=== PATIENT | female | born 1930 | race Caucasian/White ===

== ENCOUNTER 2017-07-08 13:43 | Emergency (ER) | payer MEDICARE, BC ==
[2017-07-08] MEDS ORDERED: Sodium Chloride 0.9% 10 ML Syringe FLUSH PRN (14:14)
[2017-07-08] MEDS ORDERED: Aspirin 81 MG Tab.Chew PO ONE (14:14)
--- NOTE | 2017-07-08 14:21 | EDM.PDOC ---
ED HPI GENERAL MEDICAL PROBLEM - General Chief Complaint: Chest Pain Stated Complaint: CHEST PAIN Time Seen by Provider: 07/08/17 14:04 Source of Information: Reports: Patient History Limitations: Reports: No Limitations - History of Present Illness INITIAL COMMENTS - FREE TEXT/NARRATIVE: Patient is 86-year-old female with a history coronary disease, stent placement to the right coronary artery 2, atrial fibrillation, and pacemaker dual- chamber device. Patient states last night at approximately 3:00 in the morning while rolling over in bed she developed a sharp sensation to just under her left breast that only lasted for a short period of time. She had one episode of this. Pain was localized with no radiation. She become mildly nauseated with no emesis. She had faint dizziness as well with standing. She had a fluttering sensation in her chest when this occurred. She has a history of atrial fibrillation and has a pacemaker implanted due to this. She's mildly weak today. She feels like a limp noodle. Currently has no chest pain. She mildly short of breath. She denies any pain radiating to her back, neck, or arms. She has no abdominal pain or dysuria. Denies any recent changes in medications. She has taken all her medications as prescribed. She offers no additional complaints. Patient is on digoxin, atenolol, atorvastatin, Eliquis, aspirin, Terrie, and acid reflux medication. - Related Data Allergies Allergy/AdvReac Type Severity Reaction Status Date / Time niacin Allergy Lightheaded Verified 10/17/15 01:41 ness Home Meds: Home Meds Aspirin [Alexandra Chewable Aspirin] 81 mg PO DAILY 07/03/14 [History] Brimonidine Tartrate 1 drop EYELF BID 07/03/14 [History] Fexofenadine [Terrie] 180 mg PO DAILY PRN 07/03/14 [History] Blythe-3/DHA/EPA/DPA/Fish Oil [Blythe-3 2100 Softgel] 1 cap PO DAILY 07/03/14 [ History] Omeprazole [Prilosec] 20 mg PO DAILY 07/03/14 [History] Travoprost [Travatan Z 0.004% Ophth Soln] 1 drop EYEBOTH BEDTIME 07/03/14 [ History] atorvaSTATin Calcium [Atorvastatin Calcium] 10 mg PO DAILY 07/03/14 [History] Apixaban [Eliquis] 2.5 mg PO BID 10/17/15 [History] Digoxin 0.125 mg PO DAILY #14 tab 10/17/15 [Rx] Atenolol 50 mg PO BID 07/08/17 [History] Cyanocobalamin (Vitamin B-12) [Vitamin B-12] 1,000 mcg PO DAILY 07/08/17 [ History] Digoxin 125 mcg PO DAILY 07/08/17 [History] Past Medical History - Past Surgical History Other Cardiovascular Surgeries/Procedures: pacemaker Social & Family History - Tobacco Use Smoking Status *Q: Never Smoker Used Tobacco, but Quit: No Second Hand Smoke Exposure: No - Alcohol Use Days Per Week of Alcohol Use: 5 Number of Drinks Per Day: 1 Total Drinks Per Week: 5 - Recreational Drug Use Recreational Drug Use: No Drug Use in Last 12 Months: No ED ROS GENERAL - Review of Systems Review Of Systems: ROS reveals no pertinent complaints other than HPI. ED EXAM, GENERAL - Physical Exam Exam: See Below Exam Limited By: No Limitations General Appearance: Alert, WD/WN, No Apparent Distress Ears: Hearing Grossly Normal Nose: Normal Inspection Throat/Mouth: Normal Voice, No Airway Compromise Neck: Normal Inspection, Supple Respiratory/Chest: No Respiratory Distress, Lungs Clear, Normal Breath Sounds, No Accessory Muscle Use, Chest Non-Tender Cardiovascular: Normal Peripheral Pulses, Regular Rate, Rhythm, No Murmur Peripheral Pulses: 2+: Radial (L), Radial (R) GI/Abdominal: Normal Bowel Sounds, Soft, Non-Tender, No Organomegaly, No Distention Back Exam: Normal Inspection Extremities: Normal Inspection, Normal Range of Motion, Non-Tender, No Pedal Edema, Normal Capillary Refill Neurological: Alert, Oriented, CN II-XII Intact, Normal Cognition, No Motor/ Sensory Deficits Psychiatric: Normal Affect, Normal Mood Skin Exam: Warm, Dry, Intact, Normal Color Course - Vital Signs Last Recorded V/S: Last Vital Signs Temp 97.1 F 07/08/17 13:59 Pulse 61 07/08/17 16:34 Resp 16 07/08/17 16:34 BP 137/78 07/08/17 13:59 Pulse Ox 98 07/08/17 16:34 - Orders/Labs/Meds Orders: Active Orders 24 hr Category Date Time Status EKG 12 Lead [EKG Documentation Completion] [RC] STAT Care 07/08/17 13:55 Active Peripheral IV Care [RC] . DIRECTED Care 07/08/17 14:14 Active Chest 1V Frontal [CR] Stat Exams 07/08/17 14:14 Taken Peripheral IV Insertion Adult [OM.PC] Stat Oth 07/08/17 14:14 Ordered Labs: Laboratory Tests 07/08/17 07/08/17 07/08/17 Range/Units 14:00 14:00 14:00 WBC 4.11 (3.98-10.04) K/mm3 RBC 3.90 L (3.98-5.22) M/mm3 Hgb 13.3 (11.2-15.7) gm/L Hct 40.0 (34.1-44.9) % MCV 102.6 H (79.4-94.8) fl MCH 34.1 H (25.6-32.2) pg MCHC 33.3 (32.2-35.5) g/dl RDW Std Deviation 47.5 H (36.4-46.3) fL Plt Count 190 (182-369) K/mm3 MPV 11.2 (9.4-12.3) fl Neut % (Auto) 46.7 (34.0-71.1) % Lymph % (Auto) 39.9 (19.3-51.7) % [place] % (Auto) 10.5 (4.7-12.5) % Eos % (Auto) 2.2 (0.7-5.8) Baso % (Auto) 0.5 (0.1-1.2) % Neut # (Auto) 1.92 (1.56-6.13) K/mm3 Lymph # (Auto) 1.64 (1.18-3.74) K/mm3 [place] # (Auto) 0.43 H (0.24-0.36) K/mm3 Eos # (Auto) 0.09 (0.04-0.36) K/mm3 Baso # (Auto) 0.02 (0.01-0.08) K/mm3 Sodium 140 (136-145) mEq/L Potassium 3.8 (3.5-5.1) mEq/L Chloride 105 (98-107) mEq/L Carbon Dioxide 27 (21-32) mEq/L Anion Gap 11.8 (5-15) BUN 10 (7-18) mg/dL Creatinine 1.0 (0.55-1.02) mg/dL Est Cr Clr Drug Dosing 31.35 mL/min Estimated GFR (MDRD) 52 (>60) mL/min BUN/Creatinine Ratio 10.0 L (14-18) Glucose 142 H (83-115) mg/dL Calcium 9.2 (8.5-10.1) mg/dL Magnesium 1.8 (1.8-2.4) mg/dl Total Bilirubin 1.1 H (0.2-1.0) mg/dL AST 30 (15-37) U/L ALT 47 (14-59) U/L Alkaline Phosphatase 67 (46-116) U/L Troponin I < 0.017 (0.00-0.056) ng/mL C-Reactive Protein < 0.2 (<1.0) mg/dL Total Protein 7.2 (6.4-8.2) g/dl Albumin 3.9 (3.4-5.0) g/dl Globulin 3.3 gm/dL Albumin/Globulin Ratio 1.2 (1-2) Digoxin 0.7 L (0.9-2.0) ng/mL Meds: Medications Discontinued Medications Generic Name Dose Route Start Last Admin Trade Name Freq PRN Reason Stop Dose Admin Aspirin 324 mg 07/08/17 14:14 07/08/17 15:02 Aspirin PO 07/08/17 14:15 324 mg ONETIME ONE Administration Sodium Chloride 10 ml 07/08/17 14:14 07/08/17 15:02 Saline Flush FLUSH 10 ml ASDIRECTED PRN Administration Keep Vein Open - Re-Assessments/Exams Free Text/Narrative Re-Assessment/Exam: IV established. Aspirin 324 mg by mouth ordered. Initial labs and studies include CBC, chem 14, CRP, dig level, troponin, mg, chest x-ray one view, and EKG. EKG reveals sinus rhythm with no acute ST changes noted. Pacer spikes present in leads V1 and V2, suggesting continues atrial pacing although not seen elsewhere on the ECG. Chest x-ray reveals dual-chamber pacemaker device. No acute abnormalities noted. Final interpretation is pending. Reviewed with Dr. Poon. Patient has a [employer]onic dual-chamber pacemaker. Will have the device interrogated. Patient reported fluttering sensation to her chest last night with onset of pain. 07/08/17 15:29 Labs reviewed: White blood cell count 4.1, hemoglobin 13.3, platelet count 190, sodium 140, potassium 3.8, creatinine 1.0, glucose 142, liver enzymes within normal limits, troponin less than 0.017, CRP less than 0.2. Digoxin level is low at 0.7. Unknown patient's therapeutic range for Digoxin. Will contact PCP for details. Troponin level should've been elevated if this was related to a coronary event with onset of symptoms at 3:00 this morning. [facility] [employer] transmission note technical findings: No device or lead performance issues observed. Current EGM: Atrial pacing, ventricular sensing. Interrogation shows: Atrial tach/AF last night at 0320 a.m 07/08/2017 lasting 27 minutes and 20 seconds. Battery is good. No auto-capture thresholds for this device. Available daily lead measurements within the expected range. Device appears functioning appropriately. 07/08/17 16:11 Digoxin level obtained July 22, 2017 revealed levels of 0.8. Patient's vital signs are stable. Patient's symptoms are minimal. She is ready be discharged home. Son is calling patient's PCP's clinic to schedule appointment to be seen on Thursday. We'll discharge patient home with instructions as documented. Departure - Departure Time of Disposition: 16:12 Disposition: Home, Self-Care 01 Condition: Good Clinical Impression: Atypical chest pain Atrial fibrillation Qualifiers: Atrial fibrillation type: paroxysmal Qualified Code(s): I48.0 - Paroxysmal atrial fibrillation Instructions: Nonspecific Chest Pain, [id number] Referrals: Dianna Kennedy MD [Primary Care Provider] - Forms: ED Department Discharge Additional Instructions: Continue taking all your home medications as prescribed. Follow-up with your PCP this Thursday for reevaluation. Return to the ED as needed for any new or worsening symptoms. - My Orders Last 24 Hours: My Active Orders 07/08/17 13:55 EKG 12 Lead [EKG Documentation Completion] [RC] STAT 07/08/17 14:14 Peripheral IV Care [RC] . DIRECTED Chest 1V Frontal [CR] Stat Peripheral IV Insertion Adult [OM.PC] Stat - Assessment/Plan Last 24 Hours: My Active Orders 07/08/17 13:55 EKG 12 Lead [EKG Documentation Completion] [RC] STAT 07/08/17 14:14 Peripheral IV Care [RC] . DIRECTED Chest 1V Frontal [CR] Stat Peripheral IV Insertion Adult [OM.PC] Stat
[2017-07-08 14:27] VITALS: BP 137/78
--- NOTE | 2017-07-10 07:26 | CR ---
Chest: Frontal view of the chest was obtained. Comparison: Previous chest x-ray of 10/17/15. Heart is slightly enlarged. Tortuous thoracic aorta is seen. Pacemaker is noted. Lungs are clear but hyperinflated. Bony structures are osteopenic. Impression: 1. Incidental findings as noted above. Nothing acute is identified on frontal chest x-ray. Diagnostic code #1
== END 2017-07-08 16:25 | disposition home or self-care (01) ==
LOC: JD.ED 13:43
DX: I48.0 Paroxysmal atrial fibrillation (principal); R07.89 Other chest pain; Z95.0 Presence of cardiac pacemaker; Z79.82 Long term (current) use of aspirin; Z79.899 Other long term (current) drug therapy; Z88.8 Allergy status to other drugs, medicaments and biological substances
CPT/HCPCS: 36415; 71010; 80053; 80162; 83735; 84484; 85025; 86140; 93005; 99285; A9270; J7050; 99284

== ENCOUNTER 2018-02-19 04:51 | Emergency (ER) | payer MEDICARE, BC ==
[2018-02-19] MEDS ORDERED: Metoprolol Tartrate 50 MG Tab PO ONE (05:21)
[2018-02-19 05:27] VITALS: BP 124/93
--- NOTE | 2018-02-19 05:28 | EDM.PDOC ---
ED HPI GENERAL MEDICAL PROBLEM - General Chief Complaint: Cardiovascular Problem Stated Complaint: RACING HEART Time Seen by Provider: 02/19/18 05:07 Source of Information: Reports: Patient, Family, RN Notes Reviewed - History of Present Illness INITIAL COMMENTS - FREE TEXT/NARRATIVE: 87-year-old female has been brought in by family after having symptoms of palpitations and mild chest achiness and tightness this morning. Gotten up to the bathroom about an hour and a half ago and shortly after lying back down the bed he had the above symptoms. Radiation of pain to shoulder or arm. No nausea vomiting or diaphoresis. She states that she does feel very mildly short of breath. She does have history of chronic atrial fib. She is on eliquis for that , also baby aspirin in addition to her other medications. She has not taken any of that yet this morning. Patient also does have a pacemaker. Left Chest Pain Score (Numeric/FACES): 7 - Related Data Allergies Allergy/AdvReac Type Severity Reaction Status Date / Time niacin Allergy Lightheaded Verified 02/19/18 04:59 ness Home Meds: Home Meds Aspirin [Alexandra Chewable Aspirin] 81 mg PO DAILY 07/03/14 [History] Brimonidine Tartrate 1 drop EYELF BID 07/03/14 [History] Fexofenadine [Terrie] 180 mg PO DAILY PRN 07/03/14 [History] Guthrie-3/DHA/EPA/DPA/Fish Oil [Guthrie-3 2100 Softgel] 1 cap PO DAILY 07/03/14 [ History] Travoprost [Travatan Z 0.004% Ophth Soln] 1 drop EYEBOTH BEDTIME 07/03/14 [ History] atorvaSTATin Calcium [Atorvastatin Calcium] 10 mg PO DAILY 07/03/14 [History] Apixaban [Eliquis] 2.5 mg PO BID 10/17/15 [History] Atenolol 50 mg PO BID 07/08/17 [History] Cyanocobalamin (Vitamin B-12) [Vitamin B-12] 1,000 mcg PO DAILY 07/08/17 [ History] Digoxin [Digox] 125 mcg PO DAILY 02/19/18 [History] Lysine [L-Lysine] 1 tab PO DAILY 02/19/18 [History] Omeprazole Magnesium [Prilosec Otc] 1 tab PO DAILY 02/19/18 [History] Sennosides/Docusate Sodium [Senna Plus Tablet] 1 tab PO DAILY 02/19/18 [History] Past Medical History HEENT History: Reports: Cataract, Glaucoma, Impaired Vision Other HEENT History: Wears glasses Cardiovascular History: Reports: Afib, Pacemaker Gastrointestinal History: Reports: Diverticulosis, GERD [employer] OFFICER History: Reports: Neurological History: Reports: Concussion, TIA Oncologic (Cancer) History: Reports: Other (See Below) Other Oncologic History: follicular lymphoma - Past Surgical History HEENT Surgical History: Reports: Cataract Surgery, Tonsillectomy Cardiovascular Surgical History: Reports: Coronary Artery Stent Other Cardiovascular Surgeries/Procedures: pacemaker GI Surgical History: Reports: Appendectomy Female Surgical History: Reports: Nephrectomy Social & Family History - Tobacco Use Smoking Status *Q: Never Smoker Used Tobacco, but Quit: No Second Hand Smoke Exposure: No - Alcohol Use Days Per Week of Alcohol Use: 5 Number of Drinks Per Day: 1 Total Drinks Per Week: 5 - Recreational Drug Use Recreational Drug Use: No Drug Use in Last 12 Months: No ED ROS GENERAL - Review of Systems Review Of Systems: See Below Constitutional: Denies: Fever, Chills, Diaphoresis HEENT: Denies: Sinus Problem, Throat Pain Respiratory: Reports: Shortness of Breath. Denies: Wheezing, Pleuritic Chest Pain, Cough Cardiovascular: Reports: Chest Pain (Mild tightness left chest without radiation , comes and goes), Dyspnea on Exertion (Mild), Palpitations GI/Abdominal: Denies: Abdominal Pain, Nausea, Vomiting Musculoskeletal: Denies: Shoulder Pain, Arm Pain Neurological: Reports: Dizziness (Chronic, worse when standing). Denies: Trouble Speaking, Weakness (No focal weakness) ED EXAM, GENERAL - Physical Exam Exam: See Below General Appearance: Alert, No Apparent Distress Eye Exam: Bilateral Eye: PERRL Throat/Mouth: Normal Inspection Neck: Supple, Other Respiratory/Chest: No Respiratory Distress (No JVD), Lungs Clear, Normal Breath Sounds Cardiovascular: Irregularly Irregular GI/Abdominal: Soft, Non-Tender Extremities: Normal Inspection. No: Pedal Edema, Leg Pain Neurological: Alert, Oriented, No Motor/Sensory Deficits Skin Exam: Warm, Dry, Normal Color EKG INTERPRETATION EKG Date: 02/19/18 Rhythm: A-Fib Rate (Beats/Min): 104 [place]: Normal P-Wave: Absent QRS: Normal ST-T: Other (Mild diffuse nonspecific ST changes) Course - Vital Signs Last Recorded V/S: Last Vital Signs Temp 98.4 F 02/19/18 04:59 Pulse 108 H 02/19/18 05:25 Resp 19 02/19/18 04:59 BP 124/93 H 02/19/18 05:25 Pulse Ox 98 02/19/18 04:59 - Orders/Labs/Meds Orders: Active Orders 24 hr Category Date Time Status Chest 1V Frontal [CR] Stat Exams 02/19/18 05:21 Taken EKG 12 Lead [EK] Stat Ther 02/19/18 05:01 Ordered Labs: Laboratory Tests 02/19/18 02/19/18 02/19/18 Range/Units 04:56 04:56 04:59 WBC 4.14 (3.98-10.04) K/mm3 RBC 3.94 L (3.98-5.22) M/mm3 Hgb 13.3 (11.2-15.7) gm/L Hct 39.8 (34.1-44.9) % MCV 101.0 H (79.4-94.8) fl MCH 33.8 H (25.6-32.2) pg MCHC 33.4 (32.2-35.5) g/dl RDW Std Deviation 46.3 (36.4-46.3) fL Plt Count 196 (182-369) K/mm3 MPV 11.3 (9.4-12.3) fl Neutrophils % (Manual) 52 (40-60) % Band Neutrophils % 0 (0-10) % Lymphocytes % (Manual) 39 (20-40) % Atypical Lymphs % 0 % Monocytes % (Manual) 7 (2-10) % Eosinophils % (Manual) 2 (0.7-5.8) % Basophils % (Manual) 0 L (0.1-1.2) Platelet Estimate Adequate Macrocytosis 1+ slight RBC Morph Comment Abnormal Sodium 139 (136-145) mEq/L Potassium 3.8 (3.5-5.1) mEq/L Chloride 105 (98-107) mEq/L Carbon Dioxide 27 (21-32) mEq/L Anion Gap 10.8 (5-15) BUN 16 (7-18) mg/dL Creatinine 0.8 (0.55-1.02) mg/dL Est Cr Clr Drug Dosing 38.44 mL/min Estimated GFR (MDRD) > 60 (>60) mL/min BUN/Creatinine Ratio 20.0 H (14-18) Glucose 96 (83-115) mg/dL Calcium 9.2 (8.5-10.1) mg/dL Total Bilirubin 1.1 H (0.2-1.0) mg/dL AST 31 (15-37) U/L ALT 43 (14-59) U/L Alkaline Phosphatase 63 (46-116) U/L Troponin I < 0.017 (0.00-0.056) ng/mL NT-Pro-B Natriuret Pep 356 (0-450) pg/mL Total Protein 7.3 (6.4-8.2) g/dl Albumin 4.1 (3.4-5.0) g/dl Globulin 3.2 gm/dL Albumin/Globulin Ratio 1.3 (1-2) Meds: Medications Discontinued Medications Generic Name Dose Route Start Last Admin Trade Name Ryan PRN Reason Stop Dose Admin Metoprolol Tartrate 50 mg 02/19/18 05:21 02/19/18 05:25 Lopressor PO 02/19/18 05:22 50 mg ONETIME ONE Administration - Re-Assessments/Exams Free Text/Narrative Re-Assessment/Exam: 02/19/18 06:33. On arrival patient was in atrial fib with heart rate running primarily in the 90s and occasionally up to 105-107 range. This is apparently what had happened at home with at least one reading when they did check her blood pressure, heart rate reported to be about 107. We did give metoprolol 50 oral which would be her usual morning dose. About that time her heart rate did slow down and her pacemaker typical initially pacing at a rate of 80 and then at a rate of 60. With that her palpitations and chest discomfort completely went away. Troponin is come back normal. Chest x-ray and other labs normal as well. Discharge instructions as documented. Departure - Departure Time of Disposition: 06:24 Disposition: Home, Self-Care 01 Condition: Fair Clinical Impression: Atypical chest pain, Palpitations Instructions: Palpitations, [id number], Atrial Fibrillation Referrals: Dianna Kennedy MD [Primary Care Provider] - Forms: ED Department Discharge Additional Instructions: Continue current medications, we did give your atenolol 50 mg dosage for this morning while here in the ED so did not repeat that this morning at home, take all of your other medications as usual, continue to drink plenty of water to maintain hydration. Follow-up clinic as needed, return to ED as needed if symptoms worsening in any way. - My Orders Last 24 Hours: My Active Orders 02/19/18 05:01 EKG 12 Lead [EK] Stat 02/19/18 05:21 Chest 1V Frontal [CR] Stat - Assessment/Plan Last 24 Hours: My Active Orders 02/19/18 05:01 EKG 12 Lead [EK] Stat 02/19/18 05:21 Chest 1V Frontal [CR] Stat
--- NOTE | 2018-02-19 07:57 | CR ---
Chest: Portable view of the chest was obtained. Comparison: Prior chest x-ray of 07/08/17. Heart is slightly enlarged. Tortuous thoracic aorta is seen. Pacemaker is present. Scoliosis is noted within the spine with scattered degenerative change. Lungs are clear with no acute parenchymal densities. Bony structures are osteopenic. Impression: 1. Incidental findings. Nothing acute is seen on portable chest x-ray. Diagnostic code #2
== END 2018-02-19 06:37 | disposition home or self-care (01) ==
LOC: JD.ED 04:51
DX: R07.89 Other chest pain (principal); R00.2 Palpitations; I48.91 Unspecified atrial fibrillation; K21.9 Gastro-esophageal reflux disease without esophagitis; Z86.73 Personal history of transient ischemic attack (TIA), and cerebral infarction without residual deficits; Z88.8 Allergy status to other drugs, medicaments and biological substances; Z79.82 Long term (current) use of aspirin; Z79.899 Other long term (current) drug therapy; Z95.0 Presence of cardiac pacemaker
CPT/HCPCS: 71045; 80053; 83880; 84484; 85025; 93005; 99285; A9270; 93010; 99284